=== PATIENT | female | born 1990 | race Caucasian/White ===

== ENCOUNTER 2017-11-02 17:23 | Observation (INO) | payer OTHER ==
[2017-11-02] VITALS (7 sets, daily range): BP systolic 108–155; BP diastolic 56–87; PULSE 80–140; RESP 16–26; TEMP 97.9–98.5; O2SAT 97–100
[~2017-11-02] VITALS: Ht 170.2 cm; Wt 80.0 kg
[2017-11-02] MEDS ORDERED: RESP: RACEPINEPHRINE 2.25% 0.5 ML NEB ONE (17:26)
[2017-11-02] MEDS ORDERED: SODIUM CHLOR 0.9% 1000 ML INJ 1,000 ML IV SCH (17:28)
[2017-11-02] MEDS ORDERED: diphenhydrAMINE HCL 50 MG/ML VIAL IVP ONE (17:30)
[2017-11-02] MEDS ORDERED: methylPREDNISolone SOD SUCC 125 MG/2 ML VIAL IM ONE (17:30)
[2017-11-02] MEDS ORDERED: EPINEPHrine HCL (1:1000) 1 MG/ML VIAL IM ONE ×2 (17:30→19:30)
[2017-11-02] MEDS ORDERED: methylPREDNISolone SOD SUCC 125 MG/2 ML VIAL ONE (17:30)
[2017-11-02] MEDS ORDERED: diphenhydrAMINE HCL 50 MG/ML VIAL ONE (17:30)
[2017-11-02] MEDS ORDERED: FAMOTIDINE 20 MG/2 ML VIAL IV PUSH ONE (17:30)
[2017-11-02] MEDS ORDERED: NUVAMIS VAGINAL (17:40)
--- NOTE | 2017-11-02 18:40 | PD ---
HPI Chief Complaint: Allergic/Adverse Reaction Time Seen by Provider: 17:45 Travel History International Travel<30 days: No Contact w/Intl Traveler<30days: No Traveled to known affect area: No History of Present Illness HPI 26yo F with no significant PMH presents to the ED with c/o generalized hives, swelling in face about 4pm today. Said she ate shrimp for lunch around 3pm. Had vomited after coughing but denies any fever, chest pain, n/v, abdominal pain , focal weakness or numbness. PFSH Past Medical History Asthma: Yes Diabetes: No Tetanus Vaccination: > 5 Years Influenza Vaccination: No ?: Not LMP: 10/15/17 Social History Alcohol Use: No Tobacco Use: No Substance Use: No Allergies-Medications (Allergen,Severity, Reaction): Coded Allergies: shrimp (Verified Allergy, Intermediate, Hives, 11/03/17) Hives from head to toe; no anaphylaxis Reported Meds & Prescriptions Reported Meds & Active Scripts Active Reported Nuvaring Vaginal Insert (Etonogestrel-Ethinyl Estradiol Vaginal Insert) 0.120- 0.015 Mg/24 Hr Vagring 1 Applic VAGINAL DIRECTED Review of Systems Except as stated in HPI: all other systems reviewed are Neg Physical Exam Narrative GENERAL: 26yo F in mild distress. SKIN: Focused skin assessment warm/dry. HEAD: Atraumatic. Normocephalic. EYES: Pupils equal and round. +Bilateral upper eyelid edema. +mild upper lip edema. ENT: Uvula midline. No edema in uvula. No tongue or lip swelling. NECK: Trachea midline. No JVD. CARDIOVASCULAR: Mild tachycardia. No murmur appreciated. RESPIRATORY: No accessory muscle use. Clear to auscultation. Breath sounds equal bilaterally. GASTROINTESTINAL: Abdomen soft, non-tender, nondistended. MUSCULOSKELETAL: No obvious deformities. No clubbing. No cyanosis. No edema. NEUROLOGICAL: Awake and alert. No obvious cranial nerve deficits. Motor grossly within normal limits. Normal speech. PSYCHIATRIC: Appropriate mood and affect; insight and judgment normal. Data Data Last Documented VS Vital Signs Date Time Temp Pulse Resp B/P (MAP) Pulse Ox O2 Delivery O2 Flow Rate FiO2 11/02/17 19:49 109 138/68 11/02/17 19:22 98.3 18 97 Room Air 11/02/17 18:01 21 Orders Orders Racemic Epinephrine 2.25% Neb (Racepinep (11/02/17 17:26) Ecg Monitoring (11/02/17 17:28) Iv Access Insert/Monitor (11/02/17 17:28) Oximetry (11/02/17 17:28) Diphenhydramine Inj (Benadryl Inj) (11/02/17 17:30) Methylprednisolone So Succ Inj (Solumedr (11/02/17 17:30) Famotidine Inj (Pepcid Inj) (11/02/17 17:30) Sodium Chlor 0.9% 1000 Ml Inj (Ns 1000 M (11/02/17 17:28) Epinephrine (1:1000) Inj (Adrenalin (1:1 (11/02/17 17:30) Diphenhydramine Inj (Benadryl Inj) (11/02/17 17:30) Methylprednisolone So Succ Inj (Solumedr (11/02/17 17:30) Epinephrine (1:1000) Inj (Adrenalin (1:1 (11/02/17 19:30) Diphenhydramine Inj (Benadryl Inj) (11/02/17 19:30) Sodium Chlor 0.9% 1000 Ml Inj (Ns 1000 M (11/02/17 19:30) Electrocardiogram (11/02/17 ) Admit Order (Ed Use Only) (11/02/17 ) Brief Writer / Telemetry GABRIEL.Q8H (11/02/17 20:02) Activity Oob With Assistance (11/02/17 20:02) Notify Dr: Other (11/02/17 20:02) MDM Medical Decision Making Medical Screen Exam Complete: Yes Emergency Medical Condition: Yes Differential Diagnosis Anaphylaxis vs. allergic reaction Narrative Course 26yo F with generalized hives, facial swelling s/p eating lunch today. Unknown what she is allergic to as she had shrimp before. Pt given diphenhydramine 50mg IV, methylprednisolone 125mg IV, famotidine 20 mg IV, epinephrine 0.3mg IM. Pt also given NS IVF. HR improved and pt is feeling much better. Edema improved as well. Lungs are clear. Pt sign out to next provider Dr. Robertson to observe. At change of shift, pt said she started having hives in left arm again and left upper lip is getting more swollen. Pt ordered another dose of epinephrine and diphenhydramine. Uvula is still normal with no swelling. Left upper lip does seem more swollen and left forearm has hives. Will likely be admitted for observation now that second dose of epinephrine is needed. Critical Care Narrative Aggregate critical care time was 35 minutes. Time to perform other separately billable procedures was not included in the critical care time. My time did not include minutes spent treating any other patients simultaneously or on activities that did not directly contribute to the patient's treatment. The services I provided to this patient were to treat and/or prevent clinically significant deterioration that could result in: cardiovascular collapse or . I provided critical care services requiring my management, as noted below: Chart data review, documentation time, medication orders and management, vital sign assessments/reviewing monitor data, ordering and reviewing lab tests, ordering and interpreting/reviewing x-rays and diagnostic studies, care of the patient and discussion of the patient with the admitting physicians. Diagnosis Primary Impression: Anaphylaxis Qualified Codes: T78.2XXA - Anaphylactic shock, unspecified, initial encounter Admitting Information Admitting Physician Requests: Observation Karin Trotter DO Nov 02, 2017 18:40
--- NOTE | 2017-11-02 19:12 | PD ---
Physical Exam Date Seen by Provider: Nov 02, 2017 Time Seen by Provider: 19:10 Narrative Accepted in transfer of care from Dr. Trotter Data Data Last Documented VS Vital Signs Date Time Temp Pulse Resp B/P (MAP) Pulse Ox O2 Delivery O2 Flow Rate FiO2 11/02/17 19:49 109 138/68 11/02/17 19:22 98.3 18 97 Room Air 11/02/17 18:01 21 Orders Orders Racemic Epinephrine 2.25% Neb (Racepinep (11/02/17 17:26) Ecg Monitoring (11/02/17 17:28) Iv Access Insert/Monitor (11/02/17 17:28) Oximetry (11/02/17 17:28) Diphenhydramine Inj (Benadryl Inj) (11/02/17 17:30) Methylprednisolone So Succ Inj (Solumedr (11/02/17 17:30) Famotidine Inj (Pepcid Inj) (11/02/17 17:30) Sodium Chlor 0.9% 1000 Ml Inj (Ns 1000 M (11/02/17 17:28) Epinephrine (1:1000) Inj (Adrenalin (1:1 (11/02/17 17:30) Diphenhydramine Inj (Benadryl Inj) (11/02/17 17:30) Methylprednisolone So Succ Inj (Solumedr (11/02/17 17:30) Epinephrine (1:1000) Inj (Adrenalin (1:1 (11/02/17 19:30) Diphenhydramine Inj (Benadryl Inj) (11/02/17 19:30) Sodium Chlor 0.9% 1000 Ml Inj (Ns 1000 M (11/02/17 19:30) Electrocardiogram (11/02/17 ) Admit Order (Ed Use Only) (11/02/17 ) Oxygen Equipment Technician / Telemetry GABRIEL.Q8H (11/02/17 20:02) Activity Oob With Assistance (11/02/17 20:02) Notify Dr: Ok (11/02/17 20:02) [facility] Medical Record Reviewed: Yes Supervised Visit with TIMMY: No Interpretation(s) EKG normal sinus rhythm rate [address] elevation injury pattern or ectopy noted Differential Diagnosis Accepted in transfer of care from Dr. Trotter please refer to her dictation Narrative Course Accepted in transfer of care from Dr. Trotter for follow-up of results and response to medications for acute allergic reaction At 7:18 PM developing recurrent hives to the upper extremity and inner thigh with sensation of swelling of the lip repeat epinephrine and Benadryl dosing ordered along with bolus of normal saline; on examination patient has small amount of urticaria to the left forearm and right inner thigh lower lip with mild swelling and lateral upper lip with mild swelling but tongue and posterior pharynx and uvula show no evidence of there is no stridor or hoarseness and patient is in no acute distress no respiratory distress. Physician Communication Physician Communication Call placed to [facility] service Diagnosis Primary Impression: Allergic reaction Qualified Codes: T78.40XA - Allergy, unspecified, initial encounter Additional Impressions: Urticaria Anaphylaxis Qualified Codes: T78.2XXA - Anaphylactic shock, unspecified, initial encounter Shanon Robertson MD Nov 02, 2017 19:12
[2017-11-02] MEDS ORDERED: diphenhydrAMINE HCL 50 MG/ML VIAL IV PUSH ONE (19:30)
[2017-11-02] MEDS ORDERED: SODIUM CHLOR 0.9% 1000 ML INJ 1,000 ML IV ONE (19:30)
[2017-11-02] MEDS ORDERED: LACTULOSE SYRUP 20 GM/30 ML CUP PO PRN (20:15)
[2017-11-02] MEDS ORDERED: ACETAMINOPHEN 325 MG TAB PO PRN (20:15)
[2017-11-02] MEDS ORDERED: ACETAMINOPHEN/HYDROcodone 325 MG/5 MG TAB PO PRN (20:15)
[2017-11-02] MEDS ORDERED: MAGNESIUM HYDROXIDE SUSP 30 ML CUP PO PRN (20:15)
[2017-11-02] MEDS ORDERED: SENNOSIDES 8.6 MG TAB PO PRN (20:15)
[2017-11-02] MEDS ORDERED: BISACODYL 10 MG SUPP RECTAL PRN (20:15)
[2017-11-02] MEDS ORDERED: SODIUM CHLORIDE 0.9% FLUSH 10 ML FLUSH IV FLUSH PRN (20:15)
[2017-11-02] MEDS ORDERED: METOCLOPRAMIDE HCL 10 MG/2 ML VIAL IV PUSH PRN (20:15)
[2017-11-02] MEDS ORDERED: ACETAMINOPHEN/HYDROcodone 325 MG/10 MG TAB PO PRN (20:15)
--- NOTE | 2017-11-02 20:17 | HHI.HP ---
[facility] Service [facility] Primary Care Physician No Primary Care Physician Admission Diagnosis acute allergic reaction/angioedema shellfish Diagnoses: Travel History International Travel<30 Days: No Contact w/Intl Traveler <30 Da: No Traveled to Known Affected Are: No Past Family Social History Allergies: Coded Allergies: No Known Allergies (Unverified , 11/02/17) Physical Exam Vital Signs Vital Signs Date Time Temp Pulse Resp B/P (MAP) Pulse Ox O2 Delivery O2 Flow Rate FiO2 11/02/17 19:49 109 138/68 11/02/17 19:22 98.3 106 18 140/68 (92) 97 Room Air 11/02/17 18:15 102 17 140/76 (97) 98 Room Air 11/02/17 18:01 100 21 11/02/17 17:34 145 145/70 11/02/17 17:26 97.9 140 26 155/87 (109) 97 Physical Exam GENERAL: This is a well-nourished, well-developed patient, in no apparent distress. SKIN: No rashes, ecchymoses or lesions. Cool and dry. HEAD: Atraumatic. Normocephalic. No temporal or scalp tenderness. EYES: Pupils equal round and reactive. Extraocular motions intact. No scleral icterus. No injection or drainage. ENT: Nose without bleeding, purulent drainage or septal hematoma. Throat without erythema, tonsillar hypertrophy or exudate. Uvula midline. Airway patent. NECK: Trachea midline. No JVD or lymphadenopathy. Supple, nontender, no meningeal signs. CARDIOVASCULAR: Regular rate and rhythm without murmurs, gallops, or rubs. RESPIRATORY: Clear to auscultation. Breath sounds equal bilaterally. No wheezes , rales, or rhonchi. GASTROINTESTINAL: Abdomen soft, non-tender, nondistended. No hepato-splenomegaly , or palpable masses. No guarding. MUSCULOSKELETAL: Extremities without clubbing, cyanosis, or edema. No joint tenderness, effusion, or edema noted. No calf tenderness. Negative Homans sign bilaterally. NEUROLOGICAL: Awake and alert. Cranial nerves II through XII intact. Motor and sensory grossly within normal limits. Five out of 5 muscle strength in all muscle groups. Normal speech. Caprini VTE Risk Assessment Caprini Risk Assessment Model Point Value = 1 Point Value = 2 Point Value = 3 Point Value = 5 Age 41-60 Minor surgery BMI > 25 kg/m2 Swollen legs Varicose veins or History of unexplained or recurrent spontaneous Oral contraceptives or hormone replacement Sepsis (< 1 month) Serious lung disease, including pneumonia (< 1 month) Abnormal pulmonary function Acute myocardial infarction Congestive heart failure (< 1 month) History of inflammatory bowel disease Medical patient at bed rest Age 61-74 Arthroscopic surgery Major open surgery (> 45 min) Laparoscopic surgery (> 45 min) Malignancy Confined to bed (> 72 hours) Immobilizing plaster cast Central venous access Age >= 75 History of VTE Family history of VTE Factor V Leiden Prothrombin [id number] Lupus anticoagulant Anticardiolipin antibodies Elevated serum homocysteine Heparin-induced thrombocytopenia Other congenital or acquired thrombophilia Stroke (< 1 month) Elective arthroplasty Hip, pelvis, or leg fracture Acute spinal cord injury (< 1 month) Prophylaxis Regimen Total Risk Factor Score Risk Level Prophylaxis Regimen 0-1 Low Early ambulation 2 Moderate Order ONE of the following: *Sequential Compression Device (SCD) *Heparin 5000 units SQ BID 3-4 Higher Order ONE of the following medications: *Heparin 5000 units SQ TID *Enoxaparin/Lovenox 40 mg SQ daily (WT < 150 kg, CrCl > 30 mL/min) *Enoxaparin/Lovenox 30 mg SQ daily (WT < 150 kg, CrCl > 10-29 mL/min) *Enoxaparin/Lovenox 30 mg SQ BID (WT < 150 kg, CrCl > 30 mL/min) AND/OR *Sequential Compression Device (SCD) 5 or more Highest Order ONE of the following medications: *Heparin 5000 units SQ TID (Preferred with Epidurals) *Enoxaparin/Lovenox 40 mg SQ daily (WT < 150 kg, CrCl > 30 mL/min) *Enoxaparin/Lovenox 30 mg SQ daily (WT < 150 kg, CrCl > 10-29 mL/min) *Enoxaparin/Lovenox 30 mg SQ BID (WT < 150 kg, CrCl > 30 mL/min) AND *Sequential Compression Device (SCD) Apple Garcia MD Nov 02, 2017 20:17
--- NOTE | 2017-11-02 21:17 | HHI.HP ---
[facility] Primary Care Physician Admission Diagnosis acute allergic reaction/angioedema shellfish Diagnoses: Chief Complaint: hives, blister like rash Travel History International Travel<30 Days: No Contact w/Intl Traveler <30 Da: No Traveled to Known Affected Are: No History of Present Illness 26 y/o Female with no significant PMH presents to the ED with complaints of generalized hives, and swelling in face about 4pm today after eating shrimp. Patient states she ate lunch at around 3 pm and went to the beach and developed a blister like rash on her chest and neck along with swollen lips. She states she has eaten shrimp before but states she did not eat anything else at lunch. She denies any respiratory distress or trouble swallowing. Denies any chest pain. Upon examination all symptoms had resolved no hives noted. Review of Systems Except as stated in HPI: all other systems reviewed are Neg Past Family Social History Past Medical History Asthma, on no medication Past Surgical History Tonsillectomy Reported Medications Reported Meds & Active Scripts Active Reported Nuvaring Vaginal Insert (Etonogestrel-Ethinyl Estradiol Vaginal Insert) 0.120- 0.015 Mg/24 Hr Vagring 1 Applic VAGINAL DIRECTED Allergies: Coded Allergies: No Known Allergies (Unverified , 11/02/17) Active Ordered Medications Current Medications Medications (Trade) Dose Ordered Sig/Zaira Route Start Time Stop Time Status Last Admin (Benadryl Inj) 50 mg Q4H IV PUSH 11/03/17 00:00 (SoluMEDROL INJ) 40 mg Q8HR IV PUSH 11/02/17 22:00 (Pepcid Inj) 20 mg Q12HR IV PUSH 11/03/17 09:00 Sodium Chloride 1,000 ml @ 100 mls/hr Q10H IV 11/02/17 20:15 (NS Flush) 2 ml UNSCH PRN IV FLUSH 11/02/17 20:15 (NS Flush) 2 ml BID IV FLUSH 11/02/17 21:00 (Reglan Inj) 5 mg Q6H PRN IV PUSH 11/02/17 20:15 (Tylenol) 650 mg Q6H PRN PO 11/02/17 20:15 ([place] 5-325 Mg) 1 tab Q4H PRN PO 11/02/17 20:15 ([place] 10-325 Mg) 1 tab Q4H PRN PO 11/02/17 20:15 ([place]-Colace) 1 tab BID PO 11/02/17 21:00 (Milk Of Magnesia Liq) 30 ml Q12H PRN PO 11/02/17 20:15 (Senokot) 17.2 mg Q12H PRN PO 11/02/17 20:15 (Dulcolax Supp) 10 mg DAILY PRN RECTAL 11/02/17 20:15 (Lactulose Liq) 30 ml DAILY PRN PO 11/02/17 20:15 Family History Patient denies any family history Social History Patient denies any tobacco or alcohol use Physical Exam Vital Signs Vital Signs Date Time Temp Pulse Resp B/P (MAP) Pulse Ox O2 Delivery O2 Flow Rate FiO2 11/02/17 20:59 11/02/17 19:49 109 138/68 11/02/17 19:22 98.3 106 18 140/68 (92) 97 Room Air 11/02/17 18:15 102 17 140/76 (97) 98 Room Air 11/02/17 18:01 100 21 11/02/17 17:34 145 145/70 11/02/17 17:26 97.9 140 26 155/87 (109) 97 Physical Exam GENERAL: This is a well-nourished, well-developed patient, in no apparent distress. SKIN: No rashes, ecchymoses or lesions. Cool and dry. EYES: Pupils equal round and reactive. Extraocular motions intact. ENT: Nose without bleeding, purulent drainage or septal hematoma. Throat without erythema, tonsillar hypertrophy or exudate. Uvula midline. Airway patent. CARDIOVASCULAR: Regular rate and rhythm without murmurs, gallops, or rubs. RESPIRATORY: Clear to auscultation. Breath sounds equal bilaterally. No wheezes , rales, or rhonchi. GASTROINTESTINAL: Abdomen soft, non-tender, nondistended. No guarding. MUSCULOSKELETAL: Extremities without clubbing, cyanosis, or edema. N NEUROLOGICAL: Awake and alert. Normal speech. Caprini VTE Risk Assessment Caprini VTE Risk Assessment: No/Low Risk (score <= 1) Caprini Risk Assessment Model Point Value = 1 Point Value = 2 Point Value = 3 Point Value = 5 Age 41-60 Minor surgery BMI > 25 kg/m2 Swollen legs Varicose veins or History of unexplained or recurrent spontaneous Oral contraceptives or hormone replacement Sepsis (< 1 month) Serious lung disease, including pneumonia (< 1 month) Abnormal pulmonary function Acute myocardial infarction Congestive heart failure (< 1 month) History of inflammatory bowel disease Medical patient at bed rest Age 61-74 Arthroscopic surgery Major open surgery (> 45 min) Laparoscopic surgery (> 45 min) Malignancy Confined to bed (> 72 hours) Immobilizing plaster cast Central venous access Age >= 75 History of VTE Family history of VTE Factor V Leiden Prothrombin [id number] Lupus anticoagulant Anticardiolipin antibodies Elevated serum homocysteine Heparin-induced thrombocytopenia Other congenital or acquired thrombophilia Stroke (< 1 month) Elective arthroplasty Hip, pelvis, or leg fracture Acute spinal cord injury (< 1 month) Prophylaxis Regimen Total Risk Factor Score Risk Level Prophylaxis Regimen 0-1 Low Early ambulation 2 Moderate Order ONE of the following: *Sequential Compression Device (SCD) *Heparin 5000 units SQ BID 3-4 Higher Order ONE of the following medications: *Heparin 5000 units SQ TID *Enoxaparin/Lovenox 40 mg SQ daily (WT < 150 kg, CrCl > 30 mL/min) *Enoxaparin/Lovenox 30 mg SQ daily (WT < 150 kg, CrCl > 10-29 mL/min) *Enoxaparin/Lovenox 30 mg SQ BID (WT < 150 kg, CrCl > 30 mL/min) AND/OR *Sequential Compression Device (SCD) 5 or more Highest Order ONE of the following medications: *Heparin 5000 units SQ TID (Preferred with Epidurals) *Enoxaparin/Lovenox 40 mg SQ daily (WT < 150 kg, CrCl > 30 mL/min) *Enoxaparin/Lovenox 30 mg SQ daily (WT < 150 kg, CrCl > 10-29 mL/min) *Enoxaparin/Lovenox 30 mg SQ BID (WT < 150 kg, CrCl > 30 mL/min) AND *Sequential Compression Device (SCD) Assessment and Plan Assessment and Plan 26 y/o Female with no significant PMH presents to the ED with complaints of generalized hives, and swelling in face about 4pm today after eating shrimp. Allergic reaction -Solumedrol and Benadryl IV scheduled -Pepcid for GI prophylaxis -Monitor respiratory status and vitals -Cont IVF DVT prophylaxis: SCDs Discussed Condition With Patient and RN Katy Kelly Nov 02, 2017 21:17
[2017-11-02] MEDS: DOCUSATE SODIUM 50 MG/SENNA 8.6 MG TAB PO SCH (21:49)
[2017-11-02] MEDS: SODIUM CHLOR 0.9% 1000 ML INJ 1,000 ML IV SCH (22:04)
[2017-11-02] MEDS: methylPREDNISolone SOD SUCC 40 MG/1 ML VIAL IV PUSH SCH (22:07)
[2017-11-02] MEDS: SODIUM CHLORIDE 0.9% FLUSH 10 ML FLUSH IV FLUSH SCH (22:07)
[2017-11-02] MEDS: diphenhydrAMINE HCL 50 MG/ML VIAL IV PUSH SCH (23:08)
[2017-11-03 00:01] VITALS: PULSE 81
[2017-11-03] MEDS: diphenhydrAMINE HCL 50 MG/ML VIAL IV PUSH SCH ×2 (03:37→08:56)
[2017-11-03 04:00] VITALS: PULSE 74
[2017-11-03 04:06] VITALS: BP 120/75; PULSE 63; RESP 16; TEMP 98.5; O2SAT 98
[2017-11-03] MEDS: methylPREDNISolone SOD SUCC 40 MG/1 ML VIAL IV PUSH SCH (05:19)
[2017-11-03 05:47] LABS: AUTOMATED NEUTROPHIL # 5.1 TH/MM3 (1.8-7.7); BASOPHIL % 0.1 % (0.0-2.0); HEMATOCRIT 35.4 % (35.0-46.0); HEMOGLOBIN 12.1 GM/DL (11.6-15.3); LYMPH % 12.1 % (9.0-44.0); LYMPHOCYTE # 0.7 TH/MM3 (1.0-4.8); MEAN CELL VOLUME 78.7 FL (80.0-100.0); MEAN CORPUSCULAR HEMOGLOBIN 26.9 PG (27.0-34.0); MEAN CORPUSCULAR HGB CONC 34.1 % (32.0-36.0); MEAN PLATELET VOLUME 8.2 FL (7.0-11.0); MONO % 1.5 % (0.0-8.0); MONOCYTE # 0.1 TH/MM3 (0-0.9); NEUT % 86.3 % (16.0-70.0); PLATELET COUNT 277 TH/MM3 (150-450); RED BLOOD COUNT 4.49 MIL/MM3 (4.00-5.30); RED CELL DISTRIBUTION WIDTH 13.7 % (11.6-17.2); WHITE BLOOD COUNT 5.9 TH/MM3 (4.0-11.0)
[2017-11-03 06:06] LABS: ALBUMIN 3.4 GM/DL (3.4-5.0); ALT (GPT) 21 U/L (10-53); AST (GOT) 14 U/L (15-37); BICARBONATE 21.6 MEQ/L (21.0-32.0); BLOOD UREA NITROGEN 7 MG/DL (7-18); CALCIUM 8.4 MG/DL (8.5-10.1); CHLORIDE 110 MEQ/L (98-107); CREATININE 0.76 MG/DL (0.50-1.00); GLOMERULAR FILTRATION RATE 93 ML/MIN (>89); GLUCOSE,RANDOM 139 MG/DL (74-106); SODIUM (NA) 144 MEQ/L (136-145)
[2017-11-03 06:09] LABS: ALKALINE PHOSPHATASE 59 U/L (45-117); TOTAL BILIRUBIN ADULT 0.4 MG/DL (0.2-1.0); TOTAL PROTEIN 6.8 GM/DL (6.4-8.2)
[2017-11-03] MEDS: SODIUM CHLORIDE 0.9% FLUSH 10 ML FLUSH IV FLUSH SCH (08:57)
[2017-11-03] MEDS: DOCUSATE SODIUM 50 MG/SENNA 8.6 MG TAB PO SCH (08:57)
[2017-11-03] MEDS ORDERED: FAMOTIDINE 20 MG/2 ML VIAL IV PUSH SCH (09:00)
[2017-11-03] MEDS ORDERED: EPIP0.3I IM (09:08)
[2017-11-03] MEDS ORDERED: CETI10 PO (09:08)
[2017-11-03] MEDS ORDERED: PRED20 PO (09:08)
[2017-11-03] MEDS ORDERED: ZANT150T2 PO (09:08)
[2017-11-03] MEDS: SODIUM CHLOR 0.9% 1000 ML INJ 1,000 ML IV SCH (09:09)
--- NOTE | 2017-11-03 09:09 | HHI.DCPOC ---
Discharge Care Plan Diagnosis: (1) Allergic reaction (2) Urticaria Your Health Problems Are: Swelling Rash Goals to Promote Your Health * To prevent worsening of your condition and complications * To maintain your health at the optimal level Directions to Meet Your Goals Take your medications as prescribed Follow your dietary instruction Follow activity as directed Keep your appointments as scheduled Take your immunizations and boosters as scheduled If your symptoms worsen call your PCP, if no PCP go to Urgent Care Center or Emergency Room Smoking is Dangerous to Your Health. Avoid second hand smoke Call the 24-hour hour crisis hotline for domestic abuse at Jennifer Steele PA-C Nov 03, 2017 9:09 am
--- NOTE | 2017-11-03 09:15 | HHI.PR ---
Subjective Remarks Follow-up for allergic reaction to shrimp. Patient reports feeling much better today. She denies any further lip swelling. Denies any tongue swelling, dysphagia, shortness of breath, or any difficulty breathing. O2 sat stable on room air. She states her rash has completely resolved. She wants to go home. Objective Vitals Vital Signs Date Time Temp Pulse Resp B/P (MAP) Pulse Ox O2 Delivery O2 Flow Rate FiO2 11/03/17 04:06 98.5 63 16 120/75 (90) 98 11/03/17 04:00 74 11/03/17 00:01 81 11/02/17 23:17 98.5 80 16 108/61 (77) 98 11/02/17 21:50 98.1 88 18 109/56 (73) 98 11/02/17 21:08 83 11/02/17 20:59 11/02/17 19:49 109 138/68 11/02/17 19:22 98.3 106 18 140/68 (92) 97 Room Air 11/02/17 18:15 102 17 140/76 (97) 98 Room Air 11/02/17 18:01 100 21 11/02/17 17:34 145 145/70 11/02/17 17:26 97.9 140 26 155/87 (109) 97 Result Diagram: 11/03/17 0503 11/03/17 0503 Objective Remarks GENERAL: Well-nourished, well-developed young female patient in [facility]. SKIN: Warm and dry. No rash. HEENT: Normocephalic. Atraumatic. Pupils equal and round. Mucous membranes pink and moist. No obvious lip or tongue swelling. Airway patent. Oropharynx clear. NECK: Supple. Trachea midline. CARDIOVASCULAR: Regular rate and rhythm. No murmur appreciated. RESPIRATORY: No accessory muscle use. Clear to auscultation. Breath sounds equal bilaterally. GASTROINTESTINAL: Abdomen soft, non-tender, nondistended. Normoactive bowel sounds x4. MUSCULOSKELETAL: No obvious deformities. Extremities without clubbing, cyanosis , or edema. NEUROLOGICAL: Awake and alert. No obvious cranial nerve deficits. Motor grossly within normal limits. Moving all extremities spontaneously. Normal speech. PSYCHIATRIC: Appropriate mood and affect; insight and judgment normal. Medications and IVs Current Medications Medications (Trade) Dose Ordered Sig/Zaira Route Start Time Stop Time Status Last Admin (Benadryl Inj) 50 mg Q4H IV PUSH 11/03/17 00:00 11/03/17 08:56 (SoluMEDROL INJ) 40 mg Q8HR IV PUSH 11/02/17 22:00 11/03/17 05:19 (Pepcid Inj) 20 mg Q12HR IV PUSH 11/03/17 09:00 11/03/17 08:56 Sodium Chloride 1,000 ml @ 100 mls/hr Q10H IV 11/02/17 20:15 11/02/17 22:04 (NS Flush) 2 ml UNSCH PRN IV FLUSH 11/02/17 20:15 (NS Flush) 2 ml BID IV FLUSH 11/02/17 21:00 11/03/17 08:57 (Reglan Inj) 5 mg Q6H PRN IV PUSH 11/02/17 20:15 (Tylenol) 650 mg Q6H PRN PO 11/02/17 20:15 ([place] 5-325 Mg) 1 tab Q4H PRN PO 11/02/17 20:15 ([place] 10-325 Mg) 1 tab Q4H PRN PO 11/02/17 20:15 ([place]-Colace) 1 tab BID PO 11/02/17 21:00 (Milk Of Magnesia Liq) 30 ml Q12H PRN PO 11/02/17 20:15 (Senokot) 17.2 mg Q12H PRN PO 11/02/17 20:15 (Dulcolax Supp) 10 mg DAILY PRN RECTAL 11/02/17 20:15 (Lactulose Liq) 30 ml DAILY PRN PO 11/02/17 20:15 A/P Assessment and Plan 26-year-old female with no significant past medical history presents with acute onset of hives and lip swelling after eating shrimp Allergic reaction/angioedema: Secondary to shrimp/shellfish -Status post epinephrine in the ED -Given IV Solu-Medrol, IV Benadryl, and IV Pepcid -Given IV fluid hydration -Symptoms resolved, O2 sat stable on room air, stable for discharge -Advised patient to follow-up with medical director for allergy testing -Also advised patient to carry EpiPen at all times -Patient inquiring about drinking alcohol while on these medications as her birthday is in 2 days, advised to avoid all alcohol DVT prophylaxis: Ambulation, teds/SCDs Discharge Planning Discharge patient to home Condition on discharge: Improved Regular Diet as tolerated Ad Thelma activity Rx written: Cetirizine 10 mg daily 5 days, Zantac 150 mg twice daily 5 days, prednisone 20 mg twice daily 3 days, epinephrine pen prn allergic reaction Follow-up with primary care physician and allergy/immunology physician Avoid all shrimp/shellfish Jennifer Steele PA-C Nov 03, 2017 9:15 am
--- NOTE | 2017-11-03 16:03 | EKG ---
Date Performed: 11/02/2017 Time Performed: 20:10:19 PTAGE: 26 years EKG: Sinus rhythm NORMAL ECG NO PREVIOUS TRACING DOCTOR: Vito Chaudhry Interpretating Date/Time 11/03/2017 16:01:49
== END 2017-11-03 11:58 | disposition home or self-care (01) ==
LOC: NEPC 17:23 → NEDA 20:04 → NEPHCDU 22:38
PROVIDERS: ADMIT Family Medicine; ATTEND Family Medicine
DX: T78.1XXA Other adverse food reactions, not elsewhere classified, initial encounter (principal); T78.3XXA Angioneurotic edema, initial encounter; J45.909 Unspecified asthma, uncomplicated
CPT/HCPCS: 80053; 85025; 93005; 96361; 96372; 96374; 96375; 96376; 99291; G0378; J0171; J1200; J2920; J2930; J7030